=== PATIENT | female | born 1985 | race Hispanic/Latino ===

== ENCOUNTER 2016-09-30 18:01 | Emergency (ER) | payer MEDICAID ==
[2016-09-30 18:01] VITALS: BMI 27.3
--- NOTE | 2016-09-30 19:50 | C.PDOC ---
History Of Present Illness 30 year old female presents to the ED with complaints of a persistent headache for the past 2 months. Patient states the headache is on the right side of her head and has been persistent for 2 days. She has associated lightheadedness and has taken Excedrin and Tylenol with no relief. Patient reports prior to this episode, she does not typically get headaches and denies history of headaches in her family. She is concerned because she has extended history of cancer on both sides of her family. She denies light sensitivity, nausea, vomiting, neck pain, fever. Time Seen by Provider: 09/30/16 18:31 Chief Complaint (Nursing): Headache History Per: Patient History/Exam Limitations: no limitations Onset/Duration Of Symptoms: Days Current Symptoms Are (Timing): Still Present Severity: Mild Preceeding Symptoms: denies: Visual Disturbances Associated Symptoms: denies: Nausea, Vomiting Past Medical History Reviewed: Historical Data, Nursing Documentation, Vital Signs Vital Signs: Last Vital Signs Temp 98 F 09/30/16 20:39 Pulse 80 09/30/16 20:39 Resp 18 09/30/16 20:39 BP 110/77 09/30/16 20:39 Pulse Ox 99 09/30/16 20:39 - Medical History PMH: Anemia Family History: States: No Known Family Hx - Social History Hx Tobacco Use: No Hx Alcohol Use: No Hx Substance Use: No - Immunization History Hx Tetanus Toxoid Vaccination: No Hx Influenza Vaccination: No Hx Pneumococcal Vaccination: No Review Of Systems Except As Marked, All Systems Reviewed And Found Negative. Constitutional: Negative for: Fever, Chills Cardiovascular: Positive for: Light Headedness. Negative for: Chest Pain, Palpitations Respiratory: Negative for: Cough, Shortness of Breath Gastrointestinal: Negative for: Nausea, Vomiting, Abdominal Pain, Diarrhea Neurological: Positive for: Headache Physical Exam - Physical Exam Appears: Well, Non-toxic, In Acute Distress (in mild pain ) Skin: Normal Color, Warm, Dry, No Rash Head: Atraumatic, Normacephalic, No Other (No vesicular lesions to the scalp) Eye(s): bilateral: Normal Inspection, PERRL, EOMI, Other (No nystagmus) Oral Mucosa: Moist Neck: Normal, Normal ROM, Supple Cardiovascular: Rhythm Regular Respiratory: Normal Breath Sounds, No Accessory Muscle Use, No Rales, No Rhonchi , No Wheezing Gastrointestinal/Abdominal: Normal Exam, Bowel Sounds, Soft, No Tenderness, No Guarding, No Rebound Extremity: Normal ROM, No Deformity Neurological/Psych: Oriented x3, Normal Speech, Normal Cognition, Normal Cranial Nerves, No Cerebellar Signs, Normal Motor, Normal Sensation Gait: Steady ED Course And Treatment O2 Sat by Pulse Oximetry: 100 (Room air) Pulse Ox Interpretation: Normal - CT Scan/US CT Head w/o contrast Other Rad Studies (CT/US): Read By Radiologist, Radiology Report Reviewed CT/US Interpretation: FINDINGS: Brain: Unremarkable. No hemorrhage. No significant white matter disease. No edema. Normal. avina white matter interfaces are present. Ventricles: Unremarkable. No ventriculomegaly. Bones/ joints: Unremarkable. No acute fracture. Soft tissues: Unremarkable. Sinuses: Unremarkable as visualized. No acute sinusitis. Mastoid air cells: Unremarkable as visualized. No mastoid effusion. IMPRESSION: Normal head/ brain CT. Progress Note: CT Head w/o contrast and Upreg POC ordered and reviewed. Patient given PO Fiorecet for headache. Reevaluation Time: 20:35 Reassessment Condition: Improved (Patient reassessed, is resting comfortaby, states her headache has resolved and she feels better. CT head (-), and Upreg ( -). Patient given Rx for Fiorecet, and she was instructed to follow up with neurology within 1 week. She understands she should return to ED if symptoms worsen.) Disposition Counseled Patient/Family Regarding: Studies Performed, Diagnosis, Need For Followup, Rx Given - Disposition Referrals: Shaik Vergara MD [Staff Provider] - Alexsandra Baires MD [Staff Provider] - Disposition: HOME/ ROUTINE Disposition Time: 20:35 Condition: STABLE Additional Instructions: FOLLOW UP WITH YOUR DOCTOR IN 1-2 DAYS, AND WITH NEUROLOGY WITHIN 1 WEEK IF SYMPTOMS PERSIST RETURN TO ER IF SYMPTOMS WORSEN USE MEDICATION NEEDED FOR HEADACHE Prescriptions: Acetaminophen/Butalbital/Caf [Fioricet] 1 tab PO TID PRN #20 tab PRN Reason: Headache Instructions: General Headache (ED) Print Language: SAMI - Clinical Impression Clinical Impression: Headache - Scribe Statement The provider has reviewed the documentation as recorded by the Scribe Kyara Trevino. Provider Attestation: All medical record entries made by the Scribe were at my direction and personally dictated by me. I have reviewed the chart and agree that the record accurately reflects my personal performance of the history, physical exam, medical decision making, and the department course for this patient. I have also personally directed, reviewed, and agree with the discharge instructions and disposition.
[2016-09-30] MEDS ORDERED: Apap-Butalbital-Caffeine 325-50-40mg Tab PO STA (19:54)
[2016-09-30] MEDS ORDERED: Apap-Butalbital-Caffeine 325-50-40mg Tab ONE (19:57)
[2016-09-30 20:40] VITALS: BP 110/77; PULSE 80; RESP 18; TEMP 98
--- NOTE | 2016-10-01 07:15 | CT ---
PROCEDURE: CT HEAD WITHOUT CONTRAST. HISTORY: right sided persistent headache COMPARISON: None available. TECHNIQUE: Axial computed tomography images were obtained through the head/brain without intravenous contrast. Radiation dose: Total exam DLP = 963 mGy-cm. This CT exam was performed using one or more of the following dose reduction techniques: Automated exposure control, adjustment of the mA and/or kV according to patient size, and/or use of iterative reconstruction technique. FINDINGS: HEMORRHAGE: No intracranial hemorrhage. BRAIN: No mass effect or edema. No atrophy or chronic microvascular ischemic changes. VENTRICLES: Unremarkable. No hydrocephalus. CALVARIUM: Unremarkable. PARANASAL SINUSES: Unremarkable as visualized. No significant inflammatory changes. MASTOID AIR CELLS: Unremarkable as visualized. No inflammatory changes. OTHER FINDINGS: None. IMPRESSION: No acute intracranial abnormality. If headache persists, consider MRI. These findings were preliminarily reported at 7:42 p.m. on 09/30/[address] Baltazar Martin from [facility].
[2016-10-05 12:52] VITALS: O2SAT 100
== END 2016-09-30 20:35 | disposition home or self-care (01) ==
LOC: C.ER 18:01
DX: R51 Headache (principal)

== ENCOUNTER 2018-04-03 22:34 | Emergency (ER) | payer SELFPAY ==
[2018-04-03 22:35] VITALS: BMI 27.3
[2018-04-03 22:48] VITALS: RESP 16
[2018-04-03] MEDS ORDERED: Sodium Chloride 0.9% 1,000 ML IV ONE (23:20)
[2018-04-03 23:27] LABS: BASO % 0.2 % (0.0-2.0); EOS % 0.4 % (0.0-4.0); LYMPH # 0.7 K/uL (1.0-4.3); LYMPH % 7.4 % (20.0-40.0); MEAN CELL VOLUME 84.5 fL (81.0-99.0); MEAN CORPUSCULAR HEMOGLOBIN 29.2 pg (27.0-31.0); MEAN CORPUSCULAR HGB CONC 34.5 g/dL (33.0-37.0); MEAN PLATELET VOLUME 8.4 fL (7.2-11.7); MONO # 0.4 K/uL (0.0-0.8); MONO % 3.8 % (0.0-10.0); NEUT # 8.4 K/uL (1.8-7.0); NEUT % 88.2 % (50.0-75.0); PLATELET COUNT 245 K/uL (130-400); RBC 4.43 Mil/uL (3.80-5.20); RED CELL DISTRIBUTION WIDTH 13.4 % (11.5-14.5)
[2018-04-03 23:28] LABS: HEMOGLOBIN 12.9 g/dL (11.0-16.0); WHITE BLOOD COUNT 9.6 K/uL (4.8-10.8)
[2018-04-03] MEDS ORDERED: Sodium Chloride 0.9% 1,000 ML ONE (23:28)
[2018-04-03 23:38] LABS: ALB/GLOB RATIO 1.5 (1.0-2.1); ALBUMIN 4.5 g/dL (3.5-5.0); ALT/SGPT 45 U/L (9-52); AST/SGOT 32 U/L (14-36); BLOOD UREA NITROGEN 16 mg/dL (7-17); CALCIUM 9.3 mg/dl (8.6-10.4); GFR NON-AFRICAN AMERICAN > 60; LIPASE 34 U/L (23-300)
[2018-04-03 23:45] LABS: BANDS 1 % (0-2); EOSINOPHIL 1 % (0-4); LYMPHOCYTE 9 % (20-40); MONOCYTE 4 % (0-10); NEUTROPHIL 85 % (50-75); PLATELET ESTIMATE NORMAL (NORMAL); TOTAL CELLS COUNTED 100
[2018-04-04 00:35] VITALS: BP 118/84; PULSE 88; TEMP 97.9; O2SAT 98
--- NOTE | 2018-04-04 01:01 | C.PDOC ---
History Of Present Illness 32 year old female presents to the ER with a complaint of epigastric pain since earlier today, associated with multiple nonbilious/nonbloody vomiting and watery diarrhea. Denies fever. Patient has positive sick contacts at home with similar symptoms. Chief Complaint (Nursing): Abdominal Pain History Per: Patient History/Exam Limitations: no limitations Onset/Duration Of Symptoms: Hrs Current Symptoms Are (Timing): Still Present Location Of Pain/Discomfort: Epigastric Radiation Of Pain To:: None Quality Of Discomfort: Unable To Describe Associated Symptoms: Vomiting (Nonbilious/nonbloody), Diarrhea (watery). denies: Fever Exacerbating Factors: None Alleviating Factors: None Recent travel outside of the [place]: No Abnormal Vaginal Bleeding: No Past Medical History Reviewed: Historical Data, Nursing Documentation, Vital Signs Vital Signs: Last Vital Signs Temp 97.9 F 04/04/18 00:33 Pulse 88 04/04/18 00:33 Resp 16 04/04/18 00:33 BP 118/84 04/04/18 00:33 Pulse Ox 98 04/04/18 00:33 - Medical History PMH: Anemia Denies: Chronic Kidney Disease Family History: States: Unknown Family Hx - Social History Hx Tobacco Use: No Hx Alcohol Use: No Hx Substance Use: No - Immunization History Hx Tetanus Toxoid Vaccination: No Hx Influenza Vaccination: No Hx Pneumococcal Vaccination: No Review Of Systems Except As Marked, All Systems Reviewed And Found Negative. Constitutional: Negative for: Fever Cardiovascular: Negative for: Chest Pain, Palpitations Respiratory: Negative for: Cough, Shortness of Breath Gastrointestinal: Positive for: Vomiting (nonbilious/nonbloody), Abdominal Pain, Diarrhea (watery) Physical Exam - Physical Exam Appears: Non-toxic Skin: Normal Color, Warm, Dry Head: Atraumatic, Normacephalic Eye(s): bilateral: Normal Inspection Oral Mucosa: Moist Neck: Normal, Supple Chest: Symmetrical, No Tenderness Cardiovascular: Rhythm Regular Respiratory: Normal Breath Sounds, No Rales, No Rhonchi, No Wheezing Gastrointestinal/Abdominal: Soft, Tenderness (Mild epigastric), No Guarding, No Rebound Back: No CVA Tenderness Extremity: Normal ROM (x4) Neurological/Psych: Oriented x3, Normal Speech ED Course And Treatment - Laboratory Results Result Diagrams: 04/03/18 23:23 04/03/18 23:23 O2 Sat by Pulse Oximetry: 98 (Room air) Pulse Ox Interpretation: Normal Progress Note: Blood work, pepcid, IV fluids, and zofran administered. Disposition - Disposition Referrals: Kyle Herrera, [Non-Staff] - Disposition: HOME/ ROUTINE Disposition Time: 00:15 Condition: IMPROVED Additional Instructions: SIMRAN WRIGHT, thank you for letting us take care of you today. Your provider was Aydin Culver DO and you were treated for VOMITING. The emergency medical care you received today was directed at your acute symptoms. If you were prescribed any medication, please fill it and take as directed. It may take several days for your symptoms to resolve. Return to the Emergency Department if your symptoms worsen, do not improve, or if you have any other problems. Please contact your doctor or call one of the physicians/clinics you have been referred to that are listed on the Patient Visit Information form that is included in your discharge packet. Bring any paperwork you were given at discharge with you along with any medications you are taking to your follow up visit. Our treatment cannot replace ongoing medical care by a primary care provider outside of the emergency department. Thank you for allowing the [facility] team to be part of your care today. Drink fluids slowly throughout the day to maintain hydration. Follow up with your primary care doctor or the emergency room if you have any concerns. Prescriptions: Ondansetron ODT [Zofran ODT] 4 mg PO Q8 PRN #20 odt PRN Reason: Nausea/Vomiting Instructions: Gastritis (DC) Forms: [employer] (Burmese), Work Excuse - Clinical Impression Clinical Impression: Gastritis - Scribe Statement The provider has reviewed the documentation as recorded by the Scribpoli Sebastian All medical record entries made by the Scribe were at my direction and personally dictated by me. I have reviewed the chart and agree that the record accurately reflects my personal performance of the history, physical exam, medical decision making, and the department course for this patient. I have also personally directed, reviewed, and agree with the discharge instructions and disposition.
== END 2018-04-04 00:31 | disposition home or self-care (01) ==
LOC: C.ER 22:34
DX: K29.70 Gastritis, unspecified, without bleeding (principal)
CPT/HCPCS: 80053; 83690; 85025; 96361; 96374; 96375; 99284; J2405; J7030

== ENCOUNTER 2018-06-27 18:00 | Emergency (ER) | payer SELFPAY ==
[2018-06-27 18:01] VITALS: BMI 27.3
== END 2018-06-27 18:59 | disposition left against medical advice (07) ==
LOC: C.ER 18:00
DX: Z02.89 Encounter for other administrative examinations (principal); R51 Headache

== ENCOUNTER 2018-06-27 19:53 | Emergency (ER) | payer SELFPAY ==
[2018-06-27 19:54] VITALS: BMI 27.3
[2018-06-27 20:17] VITALS: TEMP 98.5; O2SAT 99
--- NOTE | 2018-06-27 21:10 | C.PDOC ---
History Of Present Illness 32 year old female presents to the ED for evaluation of persistent headache for one week. Patient states she normally experiences headaches one weekly, which are usually resolved with Excedrin but this time headache has still persisted. Patient states it "never really goes away." She denies fever, chills, nausea, vomiting, URI symptoms, trauma. Patient states she had a new onset of "trickle sensation" to the back of her head yesterday and sharp point pain to right forehead, which has now resolved. Patient states she still has a "barely there" headache. She denies other associated symptoms. PERSIST LIMA X 1 WEEK. PS NORMALLY GETS LIMA ONCE WEEKLY, RESOLVED W EXCEDRIN BUT THIS TIME LIMA STILL PERSIST "NEVER REALLY GOES AWAY". NO NV, FEVER, URI SX, TRAUMA. PS HAD NEW ONSET "TRICKLE SENSATION" BACK OF HEAD YESTERDAY AND [place] PAIN R FOREHEAD, NOW RESOLVED. PS STILL W "BARELY THERE" LIMA. NO OTHER ASSOC SX EXAM NAD HEENT NO PHOTOPHOBIA NEURO NO FOCAL DEF REMAINDER NEG MDM PT OFFERED MIGRAINE TX, CT. ADVISED OF LIKELY LENGTH OF STAY IN ER BUT PS IS UNABLE TO STAY FOR THAT TIME. DOES NOT WISH TX OR CT, STATES WILL FU W PMD Time Seen by Provider: 06/27/18 20:31 Chief Complaint (Nursing): Headache History Per: Patient History/Exam Limitations: no limitations Onset/Duration Of Symptoms: Days (one week ), Persistent Current Symptoms Are (Timing): Still Present Quality: Aching Associated Symptoms: denies: Nausea, Vomiting Additional History Per: Patient Past Medical History Reviewed: Historical Data, Nursing Documentation, Vital Signs Vital Signs: Last Vital Signs Temp 98.5 F 06/27/18 20:12 Pulse 87 06/27/18 20:12 Resp 20 06/27/18 20:12 BP 123/86 06/27/18 20:12 Pulse Ox 99 06/27/18 20:12 - Medical History PMH: Anemia Denies: Chronic Kidney Disease Surgical History: No Surg Hx Family History: States: Unknown Family Hx - Social History Hx Tobacco Use: No Hx Alcohol Use: No Hx Substance Use: No - Immunization History Hx Tetanus Toxoid Vaccination: No Hx Influenza Vaccination: No Hx Pneumococcal Vaccination: No Review Of Systems Constitutional: Negative for: Fever Respiratory: Negative for: Cough, Shortness of Breath Gastrointestinal: Negative for: Nausea, Vomiting Neurological: Positive for: Headache Physical Exam - Physical Exam Appears: Non-toxic, No Acute Distress Skin: Normal Color, Warm, Dry Head: Atraumatic, Normacephalic Eye(s): bilateral: Normal Inspection, Other (no photophobia ) Ear(s): Bilateral: Normal Nose: Normal, No Discharge Oral Mucosa: Moist Throat: Normal, No Erythema, No Exudate Neck: Supple Chest: Symmetrical, No Deformity, No Tenderness Cardiovascular: Rhythm Regular, No Murmur Respiratory: Normal Breath Sounds, No Rales, No Rhonchi, No Wheezing Extremity: Normal ROM, Capillary Refill (less than 2 seconds ) Neurological/Psych: Other (no focal deficits ) ED Course And Treatment O2 Sat by Pulse Oximetry: 99 (on RA) Pulse Ox Interpretation: Normal Medical Decision Making Medical Decision Making: PT OFFERED MIGRAINE TX, CT. ADVISED OF LIKELY LENGTH OF STAY IN ER BUT PS IS UNABLE TO STAY FOR THAT TIME. DOES NOT WISH TX OR CT, STATES WILL FU W PMD Disposition Counseled Patient/Family Regarding: Diagnosis, Need For Followup - Disposition Referrals: YOUR,PMD [Other] Disposition: HOME/ ROUTINE Disposition Time: 21:05 Condition: GOOD Instructions: Migraine Headache (DC) Forms: [employer] (Egyptian) - Clinical Impression Clinical Impression: Migraine - Scribe Statement The provider has reviewed the documentation as recorded by the Scribe (Jailene Adams) Provider Attestation: All medical record entries made by the Scribe were at my direction and personally dictated by me. I have reviewed the chart and agree that the record accurately reflects my personal performance of the history, physical exam, medical decision making, and the department course for this patient. I have also personally directed, reviewed, and agree with the discharge instructions and disposition.
[2018-06-27 21:44] VITALS: BP 127/82; PULSE 81; RESP 16
== END 2018-06-27 21:42 | disposition home or self-care (01) ==
LOC: C.ER 19:53
DX: G43.909 Migraine, unspecified, not intractable, without status migrainosus (principal)

== ENCOUNTER 2018-10-11 18:38 | Emergency (ER) | payer SELFPAY ==
[2018-10-11 18:38] VITALS: BMI 27.3
[2018-10-11 18:55] VITALS: RESP 18; O2SAT 100
[2018-10-11 19:31] LABS: SQUAMOUS EPITHIAL 17 /hpf (0-5); URINE BACTERIA OCC (<OCC); URINE BILIRUBIN NEGATIVE (NEGATIVE); URINE BLOOD 3+ (NEGATIVE); URINE CLARITY Hazy (Clear); URINE COLOR Yellow (YELLOW); URINE GLUCOSE (UA) NORMAL (Normal); URINE LEUKOCYTE ESTERASE 2+ Leu/uL (Negative); URINE PROTEIN 1+ mg/dL (NEGATIVE); URINE UROBILINOGEN NORMAL mg/dL (0.2-1.0); WBC CLUMPS MOD /hpf
[2018-10-11 19:32] LABS: HCG,QUALITATIVE URINE NEGATIVE (NEGATIVE)
--- NOTE | 2018-10-11 20:04 | C.PDOC ---
History Of Present Illness 32 year old female presents with urinary frequency and dysuria for one week associated with lower back pain. Patient has Hx of UTI and states it feels the same. Denies nausea, vomiting, or fever. Time Seen by Provider: 10/11/18 19:16 Chief Complaint (Nursing): Female Genitourinary History Per: Patient History/Exam Limitations: no limitations Onset/Duration Of Symptoms: Days (one week) Current Symptoms Are (Timing): Still Present Quality Of Discomfort: Unable To Describe Associated Symptoms: Back Pain (Lower), Urinary Symptoms (Frequency, Dysuria). denies: Fever, Nausea, Vomiting Alleviating Factors: None Recent travel outside of the [place]: No Abnormal Vaginal Bleeding: No Past Medical History Reviewed: Historical Data, Nursing Documentation, Vital Signs Vital Signs: Last Vital Signs Temp 98.1 F 10/11/18 18:47 Pulse 99 H 10/11/18 18:47 Resp 18 10/11/18 18:47 BP 143/84 10/11/18 18:47 Pulse Ox 100 10/11/18 18:47 Primary Care Provider: Shaik Vergara - Medical History PMH: Anemia Denies: Chronic Kidney Disease Family History: States: Unknown Family Hx - Social History Hx Tobacco Use: No Hx Alcohol Use: No Hx Substance Use: No - Immunization History Hx Tetanus Toxoid Vaccination: No Hx Influenza Vaccination: No Hx Pneumococcal Vaccination: No Review Of Systems Constitutional: Negative for: Fever Gastrointestinal: Negative for: Nausea, Vomiting Genitourinary: Positive for: Dysuria, Frequency Musculoskeletal: Positive for: Back Pain (Lower) Physical Exam - Physical Exam Appears: Non-toxic Skin: Normal Color, Warm Head: Atraumatic, Normacephalic Gastrointestinal/Abdominal: Soft, No Tenderness Back: No CVA Tenderness Pelvic: Other (Deferred) Neurological/Psych: Oriented x3, Normal Speech ED Course And Treatment - Laboratory Results Lab Results: Urine Color Yellow (YELLOW) 10/11/18 19:11 Urine Clarity Hazy (Clear) 10/11/18 19:11 Urine pH 6.0 (5.0-8.0) 10/11/18 19:11 Ur Specific [place] 1.008 (1.003-1.030) 10/11/18 19:11 Urine Protein 1+ mg/dL (NEGATIVE) H 10/11/18 19:11 Urine Glucose (UA) Normal mg/dL (Normal) 10/11/18 19:11 Urine Ketones Negative mg/dL (NEGATIVE) 10/11/18 19:11 Urine Blood 3+ (NEGATIVE) H 10/11/18 19:11 Urine Nitrate Positive (NEGATIVE) H 10/11/18 19:11 Urine Bilirubin Negative (NEGATIVE) 10/11/18 19:11 Urine Urobilinogen Normal mg/dL (0.2-1.0) 10/11/18 19:11 Ur Leukocyte Esterase 2+ Leah/uL (Negative) H 10/11/18 19:11 Urine WBC (Auto) 103 /hpf (0-5) H 10/11/18 19:11 Urine RBC (Auto) 83 /hpf (0-3) H 10/11/18 19:11 Urine WBC Clumps (Auto) Mod /hpf (NONE) H 10/11/18 19:11 Ur Squamous Epith Cells 17 /hpf (0-5) H 10/11/18 19:11 Urine Bacteria Occ (<OCC) H 10/11/18 19:11 Urine HCG, Qual Negative (NEGATIVE) 10/11/18 19:11 Urine HCG, Qual Negative (NEGATIVE) 10/11/18 19:11 O2 Sat by Pulse Oximetry: 100 (room air) Pulse Ox Interpretation: Normal Progress Note: UA was positive for UTI, patient is resting comfortably in no acute distress, vitals are stable, started on macrobid and pyridium, and advised to follow up with PMD. Disposition Counseled Patient/Family Regarding: Diagnosis, Need For Followup, Rx Given - Disposition Disposition: HOME/ ROUTINE Disposition Time: 20:01 Condition: STABLE Additional Instructions: Increase PO fluids Take medications as directed Follow up with PMD Return to ER if severe back or abdominal pain, vomiting, fever or worse Prescriptions: Ibuprofen [Motrin] 600 mg PO Q6H #30 tab Nitrofurantoin Macrocrystals [Macrobid] 1 cap PO BID #14 cap Phenazopyridine HCl [Pyridium] 100 mg PO TID #6 tab Instructions: Urinary Tract Infection, Adult (DC) Forms: [employer] ([place]) - Clinical Impression Clinical Impression: UTI (lower urinary tract infection) - PA / [employer]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 - Scribe Statement The provider has reviewed the documentation as recorded by the Scribe Frankie Sebastian All medical record entries made by the Bobbyibpoli were at my direction and personally dictated by me. I have reviewed the chart and agree that the record accurately reflects my personal performance of the history, physical exam, medical decision making, and the department course for this patient. I have also personally directed, reviewed, and agree with the discharge instructions and disposition.
[2018-10-11 20:22] VITALS: BP 112/78; PULSE 84; TEMP 98.2
== END 2018-10-11 20:19 | disposition home or self-care (01) ==
LOC: C.ER 18:38
DX: N39.0 Urinary tract infection, site not specified (principal)